=== PATIENT | male | born 1970 | race Caucasian/White ===

== ENCOUNTER 2018-04-04 03:49 | Emergency (ER) | payer OTHER ==
[~2018-04-04] VITALS: Ht 172.7 cm; Wt 96.0 kg
[2018-04-04] MEDS ORDERED: MORPHINE SULFATE 4 MG/ML CPJ (NOT FOR IM USE) IV ONE (04:45)
[2018-04-04 06:55] LABS: CHLORIDE 105 mEq/L (98-107)
[2018-04-04 07:16] LABS: HEMATOCRIT 45.6 % (42.0-52.0); MEAN CORPUSCULAR HEMOGLOBIN 29.7 pg (28.0-32.0); MEAN CORPUSCULAR VOLUME 84.8 fL (80.0-94.0); PLATELET 205 x1000/uL (130-400); RED BLOOD CELL COUNT 5.38 mill/uL (4.7-6.1); RED CELL DISTRIBUTION WIDTH 13.2 % (11.6-14.6)
[2018-04-04 09:29] VITALS: BP 131/74
== END 2018-04-04 09:38 | disposition home or self-care (01) ==
LOC: ER 03:49
DX: M54.9 Dorsalgia, unspecified (principal); M79.662 Pain in left lower leg; E11.9 Type 2 diabetes mellitus without complications; F17.200 Nicotine dependence, unspecified, uncomplicated; V43.52XA Car driver injured in collision with other type car in traffic accident, initial encounter; Y93.89 Activity, other specified; Y92.89 Other specified places as the place of occurrence of the external cause; Y99.8 Other external cause status
CPT/HCPCS: 36415; 70450; 71045; 72125; 72128; 72131; 72170; 73562; 80053; 85027; 86850; 86900; 86901; 96374; 99285; J2270